=== PATIENT | female | born 1940 | race Caucasian/White ===

== ENCOUNTER 2023-10-05 12:32 | Emergency (ER) | payer MEDICARE ==
[2023-10-05 13:59] LABS: B. PARAPERTUSSIS- RESP PCR PAN NOT DETECTED; B. PERTUSSIS- RESP PCR PANEL NOT DETECTED; C. PNEUMONIAE- RESP PCR PANEL NOT DETECTED; CORONAVIRUS 229E-RESP PCR NOT DETECTED; CORONAVIRUS HKU1-RESP PCR NOT DETECTED; CORONAVIRUS NL63-RESP PCR NOT DETECTED; CORONAVIRUS OC43-RESP PCR NOT DETECTED; HUMAN METAPNEUMOVIRUS DETECTED; INFLUENZA A- RESP PCR PANEL NOT DETECTED; INFLUENZA B - RESP PCR PANEL NOT DETECTED; M. PNEUMONIAE- RESP PCR PANEL NOT DETECTED; PARAINFLUENZA VIRUS 1 NOT DETECTED; PARAINFLUENZA VIRUS 2 NOT DETECTED; PARAINFLUENZA VIRUS 3 NOT DETECTED; PARAINFLUENZA VIRUS 4 NOT DETECTED; RHINOVIRUS/ENTEROVIRUS NOT DETECTED; RSV- RESP PCR PANEL NOT DETECTED; SARS-CoV-2 -RESP PCR PANEL NOT DETECTED
--- NOTE | 2023-10-05 17:04 | ED Physician Documentation ---
PD HPI URI - Stated complaint Stated Complaint: FEELING UNWELL - Chief complaint Chief Complaint: General - History obtained from History obtained from: Patient - History of Present Illness Timing - onset: How many days ago (few) Timing duration: Days Timing details: Abrupt onset, Still present Associated symptoms: Chills, Nasal congestion, Dry cough, Dyspnea. No: NVD, Bilateral edema Contributing factors: COPD / asthma. No: Immunocompromised Recently seen: Not recently seen PD PAST MEDICAL HISTORY - Past Medical History Past Medical History: Yes Respiratory: Other Musculoskeletal: Rheumatoid arthritis - Past Surgical History Past Surgical History: No - Present Medications Home Medications: Ambulatory Orders Medication Instructions Recorded Confirmed Albuterol Sulf [Ventolin Hfa 2 puffs INH QID #1 each 10/05/23 Inhaler] predniSONE [Deltasone] 20 mg PO DAILY #8 tab 10/05/23 - Allergies Allergies/Adverse Reactions: Allergies Allergy/AdvReac Type Severity Reaction Status Date / Time Penicillins Allergy Rash Verified 10/05/23 12:46 - Social History Does the pt smoke?: No Smoking Status: Never smoker Does the pt drink ETOH?: No Does the pt have substance abuse?: No - Immunizations Immunizations are current?: Yes PD ED PE NORMAL - Vitals Vital signs reviewed: Yes (sats good on RA) - General General: Alert and oriented X 3, Well developed/nourished - Cardiac Cardiac: RRR, No murmur - Respiratory Respiratory: No: Clear bilaterally (exp wheezing but no coarse sounds. No accessory muscle use. ) Results - Vitals Vitals: Oxygen O2 Source Room air - Labs Labs: Laboratory Tests 10/05/23 12:53 Nasal Adenovirus (PCR) NOT DETECTED Nasal B. parapertussis DNA (PCR) NOT DETECTED Nasal Coronavir 229E PCR NOT DETECTED Nasal Coronavir HKU1 PCR NOT DETECTED Nasal Coronavir NL63 PCR NOT DETECTED Nasal Coronavir OC43 PCR NOT DETECTED Nasal Enterovir/Rhinovir PCR NOT DETECTED Nasal Influenza B PCR NOT DETECTED Nasal Influenza A PCR NOT DETECTED Nasal Parainfluen 1 PCR NOT DETECTED Nasal Parainfluen 2 PCR NOT DETECTED Nasal Parainfluen 3 PCR NOT DETECTED Nasal Parainfluen 4 PCR NOT DETECTED Nasal RSV (PCR) NOT DETECTED Nasal B.pertussis DNA PCR NOT DETECTED Nasal C.pneumoniae (PCR) NOT DETECTED Barry Human Metapneumo PCR DETECTED A Nasal M.pneumoniae (PCR) NOT DETECTED Nasal SARS-CoV-2 (PCR) NOT DETECTED PD Medical Decision Making - ED course Complexity details: reviewed results (positive viral on PCR, metapneumovirus, so consistent with symptoms. ), re-evaluated patient (breathing easier with neb treatment. Given the weehzing/URI, can add steroids too. She states prednisone has done well for her in the past. ), considered differential (feeling unwell with dyspnea nd cough adn aches/fatigue. Resp viral testing positive for metapneumovirus. Does not appear septic. Sats 96% RA. Able to eat and drink. Feeling that she is too weak to take care of herself. Was able to ambulate here in ER independently. ), d/w patient Departure - Departure Disposition: 01 Home, Self Care Clinical Impression: Dyspnea, Bronchitis due to human metapneumovirus (hMPV) Condition: Stable Record reviewed to determine appropriate education?: Yes Instructions: ED Upper Resp Infec No Abx Tx Prescriptions: predniSONE [Deltasone] 20 mg PO DAILY #8 tab Albuterol Sulf [Ventolin Hfa Inhaler] 2 puffs INH QID #1 each Comments: Use the albuterol inhaler 2 puffs 4 times daily regularly for the next week or so. Prednisone 20 mg daily for the next week. For the next 4 days and then 10 mg daily for 4 days. Continue usual medicines. Stay well-hydrated. Forms: PCP List Discharge Date/Time: 10/05/23 19:20
[2023-10-05] MEDS: predniSONE 20 MG TABLET PO STA (18:06)
[2023-10-05] MEDS: ALBUTEROL 1 PUFF INH STA (18:11)
[2023-10-05] MEDS: ALBUTEROL NEB 2.5 MG/3 ML INH ONE (18:31)
[2023-10-05 19:44] VITALS: BP 157/78; O2SAT 94
== END 2023-10-05 19:20 | disposition home or self-care (01) ==
LOC: ED 12:32
DX: J40 Bronchitis, not specified as acute or chronic (principal); B97.81 Human metapneumovirus as the cause of diseases classified elsewhere; J44.9 Chronic obstructive pulmonary disease, unspecified; M06.9 Rheumatoid arthritis, unspecified
CPT/HCPCS: 87633; 94640; 99283; 99284; J7512